=== PATIENT | male | born 1960 | race Caucasian/White ===

== ENCOUNTER 2022-10-25 17:19 | Emergency (ER) | payer MEDICAID ==
[2022-10-25 18:13] LABS: ANION GAP 14.7 mEq/L (7-13); CHLORIDE,CL 104 mmol/L (98-107); SODIUM,NA 141 mmol/L (136-145)
[2022-10-25 18:17] LABS: ESTIMATED GFR 86 mL/min (>=60)
[2022-10-25] MEDS ORDERED: Acetaminophen/HYDROcodone 325-5 MG Tab PO ONE (18:35)
== END 2022-10-25 21:21 ==
LOC: DL.ED 17:19
DX: R07.81 Pleurodynia (principal); M25.562 Pain in left knee; I48.91 Unspecified atrial fibrillation; Z88.8 Allergy status to other drugs, medicaments and biological substances; Z79.01 Long term (current) use of anticoagulants; W18.09XA Striking against other object with subsequent fall, initial encounter
CPT/HCPCS: 36415; 70450; 71101; 72125; 73562; 80053; 80162; 83735; 84484; 85025; 93005; 93010; 99285; A9270